=== PATIENT | female | born 1960 | race American Indian/Alaskan Native ===

== ENCOUNTER 2021-10-29 08:41 | Emergency (ER) | payer OTHER ==
[2021-10-29] MEDS ORDERED: FUROSEMIDE 40 MG/4 ML INJ IV ONE (11:39)
[2021-10-29] MEDS ORDERED: IPRATROPIUM 0.02% NEBU 2.5 ML IH ONE (11:39)
[2021-10-29] MEDS ORDERED: ALBUTEROL 2.5 MG/3 ML NEBU IH ONE (11:39)
--- NOTE | 2021-10-29 12:08 | XRay Report ---
CHEST 1 VIEW 10/29/2021 11:00 AM INDICATION / CLINICAL INFORMATION: Dyspnea. COMPARISON: None available. FINDINGS: SUPPORT DEVICES: None. HEART / MEDIASTINUM: Mild cardiomegaly. LUNGS / PLEURA: Mild central pulmonary venous congestion. No evidence for pneumonia, pleural effusion or pneumothorax. ADDITIONAL FINDINGS: No significant additional findings. IMPRESSION: 1. Mild cardiomegaly and central pulmonary venous congestion but no CHF Signer Name: Hunter Richardson Jr, MD Signed: 10/29/2021 12:04 PM Workstation Name: [id number]
[2021-10-29 12:29] LABS: Bacteria,Urine 1+ /HPF (Negative); Mucus,Urine 2+ /HPF
[2021-10-29 12:35] LABS: Bilirubin,Urine Negative (Negative); Blood,Urine Trace (Negative); Color,Urine Amber (Yellow)
[2021-10-29 12:36] LABS: Urobilinogen,Urine < 2.0 mg/dL (<2.0)
[2021-10-29 12:59] LABS: Basophils % (Auto) 0.4 % (0.0-1.8); Eosinophils # (Auto) 0.3 K/mm3 (0.0-0.4); Eosinophils % (Auto) 2.6 % (0.0-4.3); Hematocrit 38.8 % (30.3-42.9); Hemoglobin 12.5 gm/dl (10.1-14.3); Lymphocytes # (Auto) 1.7 K/mm3 (1.2-5.4); Lymphocytes % (Auto) 17.3 % (13.4-35.0); Mean Corpuscular HGB Conc 32 % (30-34); Mean Corpuscular Volume 84 fl (79-97); Monocytes # (Auto) 0.9 K/mm3 (0.0-0.8); Platelet Count 151 K/mm3 (140-440); Red Blood Count 4.62 M/mm3 (3.65-5.03); Red Cell Distribution Width 15.8 % (13.2-15.2)
[2021-10-29 13:09] LABS: INR 0.95 (0.87-1.13)
[2021-10-29 13:24] LABS: Creatine Kinase MB 1.4 ng/mL (0.0-4.0)
[2021-10-29] MEDS ORDERED: MORPHINE 4 MG/1 ML INJ IM ONE (13:25)
[2021-10-29] MEDS ORDERED: ONDANSETRON 4 MG ODT TAB PO ONE (13:26)
[2021-10-29 13:28] LABS: Alanine Aminotransferase 21 units/L (7-56); Albumin 3.9 g/dL (3.9-5); Blood Urea Nitrogen 7 mg/dL (7-17); Calcium 9.6 mg/dL (8.4-10.2); Hemolysis Index 4
[2021-10-29 13:31] LABS: BUN/Creatinine Ratio 14
[2021-10-29 13:49] VITALS: BP 125/42
--- NOTE | 2021-10-29 14:56 | Emergency Department Report ---
ED General Adult HPI - General Chief complaint: Dyspnea/Respdistress Stated complaint: KANA PUI?: No Time Seen by Provider: 10/29/21 11:37 Source: EMS Mode of arrival: Stretcher Limitations: No Limitations - History of Present Illness Initial comments: SOB and ddib for few days history of chf , no chets pain , some headache no fe jose no rash -: Gradual, days(s) Radiation: non-radiation Severity scale (0 -10): 9 - Related Data Allergies Allergy/AdvReac Type Severity Reaction Status Date / Time No Known Allergies Allergy Verified 10/29/21 09:05 ED Review of Systems ROS: Stated complaint: KANA Other details as noted in HPI Constitutional: denies: chills, fever Eyes: denies: eye pain, eye discharge, vision change ENT: denies: ear pain, throat pain Respiratory: denies: cough, shortness of breath, wheezing Cardiovascular: denies: chest pain, palpitations Endocrine: no symptoms reported Gastrointestinal: denies: abdominal pain, nausea, diarrhea Genitourinary: denies: urgency, dysuria, discharge Musculoskeletal: denies: back pain, joint swelling, arthralgia Skin: denies: rash, lesions Neurological: denies: headache, weakness, paresthesias Psychiatric: denies: anxiety, depression Hematological/Lymphatic: denies: easy bleeding, easy bruising ED Past Medical Hx - Past Medical History Hx Hypertension: Yes Hx Congestive Heart Failure: Yes - Social History Smoking Status: Never Smoker ED Physical Exam - General Limitations: No Limitations General appearance: alert, in no apparent distress - Head Head exam: Present: atraumatic, normocephalic - Eye Eye exam: Present: normal appearance - ENT ENT exam: Present: mucous membranes moist - Neck Neck exam: Present: normal inspection - Respiratory Respiratory exam: Present: normal lung sounds bilaterally. Absent: respiratory distress - Cardiovascular Cardiovascular Exam: Present: regular rate, normal rhythm. Absent: systolic m urmur, diastolic murmur, rubs, gallop - GI/Abdominal GI/Abdominal exam: Present: soft, normal bowel sounds - Extremities Exam Extremities exam: Present: normal inspection - Back Exam Back exam: Present: normal inspection - Neurological Exam Neurological exam: Present: alert, oriented X3 - Psychiatric Psychiatric exam: Present: normal affect, normal mood - Skin Skin exam: Present: warm, dry, intact, normal color. Absent: rash ED Course Vital Signs 10/29/21 10/29/21 10/29/21 09:01 10:55 12:23 Temperature 98.5 F 97.8 F Pulse Rate 68 68 62 Pulse Rate [ Anterior Bilateral Throughout] Respiratory 16 15 20 Rate Respiratory Rate [Anterior Bilateral Throughout] Blood Pressure 167/71 Blood Pressure 120/70 167/71 128/77 [Left] O2 Sat by Pulse 98 100 100 Oximetry 10/29/21 10/29/21 12:31 13:47 Temperature Pulse Rate 69 Pulse Rate [ 60 Anterior Bilateral Throughout] Respiratory 19 Rate Respiratory 18 Rate [Anterior Bilateral Throughout] Blood Pressure Blood Pressure 125/42 [Left] O2 Sat by Pulse 100 Oximetry ED Medical Decision Making - Lab Data Result diagrams: 10/29/21 12:11 10/29/21 12:11 - EKG Data -: EKG Interpreted by Me EKG shows normal: sinus rhythm Rate: normal - EKG Data Interpretation: no acute changes - Radiology Data Radiology results: report reviewed, image reviewed Critical care attestation.: If time is entered above; I have spent that time in minutes in the direct care of this critically ill patient, excluding procedure time. ED Disposition Clinical Impression: SOB (shortness of breath), CHF exacerbation Disposition: HOME / SELF CARE / HOMELESS Is pt being admited?: No Does the pt Need Aspirin: No Condition: Stable Instructions: Shortness of Breath, Adult, [id number], Supporting Someone With Heart Failure Referrals: PRIMARY CARE, [Primary Care Provider] - 3-5 Days
--- NOTE | 2021-11-01 18:04 | Electrocardiograph Report ---
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
== END 2021-10-29 16:41 | disposition home or self-care (01) ==
LOC: ED 08:41
DX: I11.0 Hypertensive heart disease with heart failure (principal); I50.9 Heart failure, unspecified; R51.9 Headache, unspecified
CPT/HCPCS: 36415; 71045; 80053; 81001; 82550; 82553; 83735; 83880; 84484; 85025; 85610; 93005; 94640; 96372; 96374; 99284; J1940; J2270; 94644; J3490; Q0162